=== PATIENT | female | born 1970 | race Caucasian/White ===

== ENCOUNTER → 2023-10-08 12:10 | Outpatient (REF) | payer BC, SELFPAY | LOC: MRI 3T 12:10 | PROVIDERS: ATTENDING PHYSICIAN Family Medicine | DX: K86.2 Cyst of pancreas (principal) | CPT/HCPCS: 74183; A9575 ==

== ENCOUNTER → 2024-07-07 12:24 | Outpatient (REF) | payer BC, SELFPAY | LOC: HWRAD 12:24 | PROVIDERS: ATTENDING PHYSICIAN Nurse Practitioner Primary Care | DX: R19.7 Diarrhea, unspecified (principal); R10.31 Right lower quadrant pain; K86.2 Cyst of pancreas | CPT/HCPCS: 74177; Q9967 ==

== ENCOUNTER → 2024-08-04 15:57 | Outpatient (REF) | payer BC, SELFPAY | LOC: WDC 15:57 | PROVIDERS: ATTENDING PHYSICIAN Family Medicine | DX: Z12.31 Encounter for screening mammogram for malignant neoplasm of breast (principal) | CPT/HCPCS: 77063; 77067 ==

== ENCOUNTER → 2025-04-13 09:34 | Outpatient (REF) | payer BC, SELFPAY | LOC: MRI 3T 09:34 | PROVIDERS: ATTENDING PHYSICIAN Nurse Practitioner Primary Care | DX: K86.2 Cyst of pancreas (principal) | CPT/HCPCS: 74183 ==

== ENCOUNTER → 2025-08-07 15:31 | Outpatient (REF) | payer BC, SELFPAY | LOC: WDC 15:31 | PROVIDERS: ATTENDING PHYSICIAN Obstetrics & Gynecology; FAMILY PHYSICIAN Family Medicine | DX: Z12.31 Encounter for screening mammogram for malignant neoplasm of breast (principal) | CPT/HCPCS: 77063; 77067 ==